=== PATIENT | male | born 1970 | race Caucasian/White ===

== ENCOUNTER 2022-07-03 14:29 | Emergency (ER) | payer MEDICAID, SELFPAY ==
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
[2022-07-03 14:32] VITALS: BP 120/65; PULSE 99; RESP 14; TEMP 37.2; O2SAT 97; BMI 30.9
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
--- NOTE | 2022-07-03 15:03 | EKG12_ITS ---
Test Reason : PAIN Blood Pressure : / mmHG Vent. Rate : 088 BPM Atrial Rate : 088 BPM P-R Int : 184 ms QRS Dur : 092 ms QT Int : 344 ms P-R-T Axes : 049 050 063 degrees QTc Int : 416 ms Normal sinus rhythm Normal ECG Confirmed by ARMANDO FREDERICK, BUZZ ([id number]), video editor JAG HAGER ([id number]) on 07/04/2022 9:09:19 AM Referred By: TL Confirmed By:BUZZ ROBERTS MD
[2022-07-03] MEDS: 0.9% Normal Saline 1,000 ML 150 ML IV (15:13)
--- NOTE | 2022-07-03 15:16 | NURSING ---
NO OLD EKGS
[2022-07-03 15:25] LABS: Absolute Lymphocyte Count 2.18 X10^3/uL (0.83-4.51); Absolute Neutrophil Count 9.8 X10^3/uL (2.0-7.7); Basophil# 0.07 X10^3/uL; Basophil% 0.5 % (0-1); Eosinophil# 0.36 X10^3/uL; Eosinophils% 2.7 % (0-5); Hemoglobin 8.5 g/dL (13.0-16.5); Lymphocyte # 2.18 X10^3/ul (0.83-4.51); Lymphocyte % 16.1 % (19-41); Mean Corp Hgb Conc 31.5 g/dL (32-36); Mean Corpuscular Hgb 29.4 pg (27.0-32.0); Mean Corpuscular Volume 93.4 fL (80-94); Mean Platelet Vol. 8.7 fl (6.2-12.0); Monocyte# 1.11 X10^3/uL; Monocyte% 8.2 % (0-10); NRBC Flagged by Analyzer 0 % (0-5); Neutrophil # 9.75 X10^3/uL (2.7-7.7); Neutrophil % 71.8 % (47-70); POSITIVE COUNT YES; RBC Distribution Width CV 15.9 % (11.6-14.6); Red Blood Count 2.89 M/mm3 (4.6-6.2); White Blood Count 13.6 K/mm3 (4.4-11.0)
[2022-07-03 15:28] LABS: Differential Indicated SCAN CRITERIA MET; Platelet Count 1223 K/mm3 (150-450)
[2022-07-03 15:45] LABS: ALB/GLOB Ratio 0.5 RATIO (0.9-2.4); AST(SGOT) 77 U/L (15-37); Alanine Aminotransfer ALT/SGPT 146 U/L (16-61); Albumin, Serum 2.6 g/dL (3.2-5.0); Alkaline Phosphatase 142 U/L (45-117); Anion Gap 8 (5-15); BUN 18 mg/dL (7-18); BUN/Creat Ratio 17.3 RATIO (10-20); Calcium,Total 8.7 mg/dL (8.5-10.1); Chloride 102 mmol/L (98-107); Creatinine, Serum 1.04 mg/dL (0.70-1.30); EST Glomerular Filtration Rate 79 mL/min (>60); Est Glom Filt Rate - Afr Amer 96 mL/min (>60); Estimated Creatinine Clearance 78.56 ml/min; Glucose 120 mg/dL (74-106); Potassium 3.9 mmol/L (3.5-5.1); Protein, Total 7.6 g/dL (6.4-8.2); Sodium Level 137 mmol/L (136-145)
[2022-07-03 15:46] LABS: International Normalized Ratio 1.1; Partial Thromboplast Time 31.9 Seconds (24.1-36.2); Prothrombin Time (Protime)PT. 13.5 SECONDS (11.7-14.9)
[2022-07-03 15:47] LABS: Lactic Acid 1.4 mmol/L (0.4-1.9)
[2022-07-03 16:41] VITALS: BP 133/66; PULSE 99; RESP 18; O2SAT 98
[2022-07-03 16:52] LABS: Bacteria 0 SEEN /hpf (None Seen); Mucous, Urine 0 SEEN /hpf (<or=2+); Squamous Epithelial Cells - UA 0 SEEN /hpf (0-5); White Blood Cells 0 SEEN /hpf (0-5)
[2022-07-03 16:58] LABS: Glucose, Dipstick Normal (Normal); Ketone-Dipstick Negative (Negative); Leukocyte Esterase-Dipstick Negative /ul (Negative); Nitrite-Dipstick Negative (Negative); Occult Blood-Urine 250 /ul (Negative); Protein-Dipstick 30 mg/dl (Negative); Specific Gravity, Urine 1.015 (1.002-1.030); Urine Bilirubin Dipstick Negative (Negative); Urine Urobilinogen Normal (Normal); Urine pH 6.5 (5.0 - 8.0)
[2022-07-03 17:05] LABS: Color, Urine Yellow (Yellow); Red Blood Cells-Urine 0-5 SEEN /hpf (0-5); Urine Clarity Clear (Clear)
[2022-07-03] MEDS: Amox/Clavulanate 875 MG Tablet PO (17:15)
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
[2022-07-03 17:23] LABS: Anisocytosis RARE; Hypochromasia RARE; Macrocytosis RARE; Platelet Estimate MKD INC (ADEQ); Red Cell Morphology N CHROM NORMAL (NORM C&C)
[2022-07-04 12:11] LABS: Pathologist Review Reviewed
== END 2022-07-03 17:23 | disposition left against medical advice (07) ==
PROVIDERS: Emergency Provider Emergency Medicine; Visit Provider Emergency Medicine
DX: T81.49XA Infection following a procedure, other surgical site, initial encounter (principal); Z89.611 Acquired absence of right leg above knee; D64.9 Anemia, unspecified; F17.210 Nicotine dependence, cigarettes, uncomplicated; R10.9 Unspecified abdominal pain; Z53.29 Procedure and treatment not carried out because of patient's decision for other reasons; Z79.82 Long term (current) use of aspirin
CPT/HCPCS: 74177; 80053; 81001; 83605; 85025; 85610; 85730; 87040; 87086; 93005; 96360; 96361; 99282; J7030; Q9967; A4216